=== PATIENT | male | born 1980 | race Caucasian/White ===

== ENCOUNTER 2016-09-01 18:52 | Emergency (ER) | payer BC ==
[2016-09-01 18:58] VITALS: BP 144/94; PULSE 110; RESP 18; TEMP 98.5
--- NOTE | 2016-09-01 19:16 | ED ---
General Adult HPI - General Chief complaint: Skin/Abscess/Foreign Body Stated complaint: cyst on tailbone Time Seen by Provider: 09/01/16 19:00 Source: patient, RN notes reviewed Mode of arrival: ambulatory Limitations: no limitations - History of Present Illness Initial comments: Patient is a 35-year-old male with a chief complaint of a cyst over his buttocks. Patient reports that he noticed this last Saturday. He states that the pain became worse and on he was seen at [facility]. He reports that he was placed on an appointment instructed to follow-up with a surgeon. Patient reports that he cannot follow up with a surgeon for the next 2 -3 weeks. Patient denies any fevers. Patient reports the pain is severe. Patient states that he cannot find a comfortable position to sit or stand or lay down and.Patient denies any recent fever, chills, shortness of breath, chest pain, back pain, abdominal pain, nausea vomiting, numbness or tingling, dysuria or hematuria, constipation or diarrhea, headaches or visual changes, or any other current symptoms - Related Data Previous Rx's Medication Instructions Recorded Acetaminophen-Codeine 300-30mg 1 tab PO Q4H PRN #20 tablet 09/01/16 [Tylenol #3] Sulfamethox-Tmp 800-160Mg [Bactrim 2 tab PO Q12HR 10 Days 09/01/16 DS 800-160 mg] Allergies Allergy/AdvReac Type Severity Reaction Status Date / Time No Known Allergies Allergy Verified 09/01/16 18:58 Review of Systems ROS Statement: Those systems with pertinent positive or pertinent negative responses have been documented in the HPI. ROS Other: All systems not noted in ROS Statement are negative. Past Medical History Past Medical History: No Reported History History of Any Multi-Drug Resistant Organisms: None Reported Past Surgical History: No Surgical Hx Reported Additional Past Surgical History / Comment(s): wisdom teeth Past Psychological History: No Psychological Hx Reported Smoking Status: Current every day smoker Past Alcohol Use History: Occasional Past Drug Use History: None Reported General Exam - General Exam Comments Initial Comments: Pleasant 35-year-old male. No distress. Limitations: no limitations General appearance: alert, in no apparent distress Head exam: Present: atraumatic, normocephalic, normal inspection Eye exam: Present: normal appearance, PERRL, EOMI. Absent: scleral icterus, conjunctival injection, periorbital swelling ENT exam: Present: normal exam, mucous membranes moist Neck exam: Present: normal inspection. Absent: tenderness, meningismus, lymphadenopathy Respiratory exam: Present: normal lung sounds bilaterally. Absent: respiratory distress, wheezes, rales, rhonchi, stridor Cardiovascular Exam: Present: regular rate, normal rhythm, normal heart sounds. Absent: systolic murmur, diastolic murmur, rubs, gallop, clicks GI/Abdominal exam: Present: soft, normal bowel sounds. Absent: distended, tenderness, guarding, rebound, rigid Extremities exam: Present: normal inspection, full ROM, normal capillary refill. Absent: tenderness, pedal edema, joint swelling, calf tenderness Back exam: Present: normal inspection Neurological exam: Present: alert, oriented X3, CN II-XII intact Psychiatric exam: Present: normal affect, normal mood Skin exam: Present: warm, dry, intact, normal color, erythema (Patient has a 4 cm area of erythema over the left intergluteal cleft.). Absent: rash Course Vital Signs 09/01/16 18:54 Temperature 98.5 F Pulse Rate 110 H Respiratory 18 Rate Blood Pressure 144/94 O2 Sat by Pulse 98 Oximetry Procedures - Incision & Drainage Consent Obtained: verbal consent Time Out Performed?: Yes Indication: pilionidal abscess Site: buttock (intergluteal cleft) Size (cm): 3 Anesthetic Used: benzocaine 0.25% Amount (mLs): 8 I&D Cleaning Method: Betadine Sterile Field Used?: Yes Scalpel Used: #11 I&D Drainage Obtained: Pus, Blood Packing: Iodoform Culture Obtained?: Yes Patient Tolerated Procedure: well, no complications Medical Decision Making - Medical Decision Making Patient presents with pilionidal abscess for 1 week. Incised and drained, siginificant amount of pus removed. Culture obtained. Patient started on BActrim double strength. Patient given pain medication. Patient advised to follow up with surgeon next week. Patient understands treatment plan and will comply, return parameters discusssed. Disposition Clinical Impression: Pilonidal abscess Disposition: HOME SELF-CARE Condition: Good Instructions: Abscess Incision and Drainage (ED) Additional Instructions: Remove the packing in 3-4 days. Take antibiotics and pain medication as directed. Follow up with surgeon on Saturday. Return the the EC if any signs of fever, or increased redness around the area. The area covered with the dressings. Patient is allowed to shower. Wash over the area but did not pull on the packing. Prescriptions: Acetaminophen-Codeine 300-30mg [Tylenol #3] 1 tab PO Q4H PRN #20 tablet PRN Reason: Pain Sulfamethox-Tmp 800-160Mg [Bactrim DS 800-160 mg] 2 tab PO Q12HR 10 Days Referrals: Man Newman MD [Primary Care Provider] - 1-2 days Time of Disposition: 19:46
[2016-09-01] MEDS ORDERED: SULFAMETH-TMP DS STARTER PACK 2 TAB BTL PO STA (19:45)
[2016-09-01] MEDS ORDERED: ACET/COD 300 MG/30 MG STARTER PACK 6 TAB BTL PO STA (19:45)
== END 2016-09-01 20:06 | disposition home or self-care (01) ==
LOC: EC 18:52
DX: L05.01 Pilonidal cyst with abscess (principal); F17.200 Nicotine dependence, unspecified, uncomplicated
CPT/HCPCS: 10080; 87070; 87205; 99283